=== PATIENT | male | born 1980 | race Caucasian/White ===

== ENCOUNTER 2023-08-09 02:29 | Emergency (ER) | payer BC ==
[~2023-08-09] VITALS: Ht 188 cm; Wt 145.2 kg
[2023-08-09] MEDS ORDERED: ONDANSETRON HCl 4 MG/2 ML SDV IV ONE (02:35)
[2023-08-09] MEDS ORDERED: SODIUM CHLORIDE 0.9% 1,000 ML IV ONE (02:40)
[2023-08-09] MEDS ORDERED: DICYCLOMINE HCL 20 MG/2 ML VIAL IM ONE (02:55)
[2023-08-09] MEDS ORDERED: ZOFRAN4 MG/TAB PO (05:14)
[2023-08-09 05:31] VITALS: BP 138/82
== END 2023-08-09 05:45 | disposition home or self-care (01) | DRG 392 ==
LOC: ED 02:29
DX: K52.9 Noninfective gastroenteritis and colitis, unspecified (principal); E11.9 Type 2 diabetes mellitus without complications; Z20.822 Contact with and (suspected) exposure to COVID-19